=== PATIENT | male | born 1980 | race Caucasian/White ===

== ENCOUNTER 2017-02-21 11:25 | Day surgery (SDC) | payer OTHER ==
[~2017-02-21] VITALS: Ht 172.7 cm; Wt 78.6 kg
[2017-02-21] VITALS (18 sets, daily range): BP systolic 118–137; BP diastolic 67–82; PULSE 67–90; RESP 11–22; Ht 172.7 cm; Wt 78.6 kg
--- NOTE | 2017-02-21 11:43 | HPN ---
Date/Time of Note Date/Time of Note DATE: 02/21/17 TIME: 11:43 Interval H&P Admission Note Pt. seen H&P reviewed: No system changes MARCO SANCHEZ Feb 21, 2017 11:43
[2017-02-21] MEDS ORDERED: CITA20TA11 PO (11:49)
[2017-02-21] MEDS ORDERED: ADDE30 PO (11:49)
[2017-02-21] MEDS ORDERED: POLYMYXIN/BACITRACIN 1L IRRIG ONE (12:31)
[2017-02-21] MEDS ORDERED: MEPERIDINE 100 MG INJ ONE (12:34)
[2017-02-21] MEDS ORDERED: PROPOFOL 20 ML ONE (12:34)
[2017-02-21] MEDS ORDERED: LIDOCAINE 2% (SDV) 5 ML INJ ONE (12:34)
[2017-02-21] MEDS ORDERED: CEFAZOLIN 1 GM INJ ONE (12:34)
[2017-02-21] MEDS ORDERED: BUPIVACAINE 0.25% (MPF) 30 ML INJ ONE (13:05)
[2017-02-21] MEDS ORDERED: BUPIVACAINE 0.5% (SDV) 30 ML INJ ONE (13:05)
[2017-02-21] MEDS ORDERED: ONDANSETRON 4 MG INJ ONE (13:30)
--- NOTE | 2017-02-21 13:39 | OPPN ---
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
[2017-02-21] MEDS ORDERED: DIPHENHYDRAMINE 50 MG INJ ONE (13:56)
[2017-02-21] MEDS ORDERED: HYDROmorphONE (0.2 MG/ML) 10ML SYG IV ONE (13:56)
[2017-02-21] MEDS ORDERED: hydrALAzine 20 MG INJ IV PRN (14:00)
[2017-02-21] MEDS ORDERED: MIDAZOLAM 1 MG/ML 2 ML INJ IV PRN (14:00)
[2017-02-21] MEDS ORDERED: ONDANSETRON 4 MG INJ IV PRN (14:00)
[2017-02-21] MEDS ORDERED: LABETALOL HCL 20MG INJ IV PRN (14:00)
[2017-02-21] MEDS ORDERED: OXYCODONE/ACETAMINOPHEN (5/325) TAB PO PRN ×2 (14:00)
[2017-02-21] MEDS ORDERED: FENTAnyl 50 MCG/ML VIAL IV PRN ×3 (14:00)
[2017-02-21] MEDS ORDERED: HYDROmorphONE (0.2 MG/ML) 10ML SYG IV PRN ×2 (14:00)
[2017-02-21] MEDS ORDERED: DIPHENHYDRAMINE 50 MG INJ IV PRN (14:00)
[2017-02-21] MEDS ORDERED: MEPERIDINE 25 MG INJ IV PRN (14:00)
[2017-02-21] MEDS ORDERED: EPHEDrine SULFATE 50 MG/5 ML SYG IV PRN (14:00)
[2017-02-21] MEDS ORDERED: METOCLOPRAMIDE 10 MG INJ IV PRN (14:00)
[2017-02-21] MEDS: HYDROmorphONE (0.2 MG/ML) 10ML SYG IV PRN ×4 (14:10→14:39)
[2017-02-21] MEDS ORDERED: LACTATED RINGER'S 1,000 ML IV* SCH (16:00)
--- NOTE | 2017-02-21 17:55 | OPR ---
DATE OF OPERATION: 02/21/2017 SURGEON: Sedrick Ma MD ANESTHESIA: General. PREOPERATIVE DIAGNOSIS: Right thumb extensor tendon rupture within zone 2, chronic. POSTOPERATIVE DIAGNOSIS: Right thumb extensor tendon rupture within zone 2, chronic. OPERATION PERFORMED: Primary repair of chronic right thumb extensor tendon rupture within zone 2. OPERATIVE FINDINGS AT SURGERY: Complete rupture of the right thumb extensor pollicis longus tendon at the terminal portion within zone 2. INDICATIONS FOR PROCEDURE: A 36-year-old male with injury to the right thumb. He was seen in clinic a month after the injury and found to have inability to extend the thumb IP joint. We got an MRI which showed disruption of the extensor tendon at the level of the middle phalanx. Options were discussed and patient elected to proceed with surgical intervention understanding the risks and benefits. OPERATIVE PROCEDURE: The patient was seen in the preoperative area. All further questions were answered. Again, he gave informed consent understanding the risks and benefits. He was taken to the operative suite and placed in supine position. Placed under general anesthesia and tourniquet placed on right upper extremity. Right upper extremity was prepped with ChloraPrep stick and draped in usual sterile fashion. Ancef 2 grams IV was given and right upper extremity was prepped with ChloraPrep stick and draped in usual sterile fashion. Esmarch bandage was used to exsanguinate the extremity and tourniquet inflated to 250 mmHg. A dorsal longitudinal incision over the right thumb was utilized with sharp dissection carried down through skin and subcutaneous tissue. Scissor dissection revealed the extensor tendon, which had scar tissue formation at the level of the middle phalanx. There was scar tissue formation and pseudo tendon which had formed within the defect site, which measured approximately 1 cm. I carefully debrided the defect site and found at the proximal and distal ends of the tendon which had ruptured and debrided back to nice healthy tissue. I extended the thumb fully and used 3-0 Ethibond suture to do an 8- strand repair of the extensor tendon. A 5-0 Prolene was used to do a running epitendinous suture. The repair was tested and it was found to be quite strong. The wound was copiously irrigated and skin closed with 5-0 nylon. Xeroform was placed on wound followed by sterile gauze, Webril and a volar splint to the tip of the thumb with the thumb in full extension. Tourniquet deflated after 32 minutes. The patient was awakened from anesthesia. He was taken to the postoperative suite in stable condition. Tolerated procedure well without complications. SPECIMENS: None. ESTIMATED BLOOD LOSS: 5 mL. COUNTS: Sponge, instrument, and needle counts correct. TOURNIQUET TIME: 32 minutes. CONDITION AT DISCHARGE: Stable. Dictated By: Sedrick Ma MD /[email or web address] /Document#: [id number]
== END 2017-02-21 16:05 | disposition home or self-care (01) ==
LOC: SDS 11:25
PROVIDERS: ATTEND Orthopaedic Surgery Hand Surgery
DX: S66.211A Strain of extensor muscle, fascia and tendon of right thumb at wrist and hand level, initial encounter (principal); J45.909 Unspecified asthma, uncomplicated; X58.XXXA Exposure to other specified factors, initial encounter; Y93.89 Activity, other specified; Y92.89 Other specified places as the place of occurrence of the external cause; Y99.8 Other external cause status
CPT/HCPCS: 26418; J0690; J1170; J1200; J2175; J2405

== ENCOUNTER 2017-07-04 11:30 | Day surgery (SDC) | END 2017-07-04 17:32 | disposition home or self-care (01) ==